=== PATIENT | female | born 1945 | race Caucasian/White ===

== ENCOUNTER 2016-10-15 06:57 | Emergency (ER) | payer MEDICARE, OTHER ==
[~2016-10-15] VITALS: Ht 160 cm; Wt 78.2 kg
[2016-10-15 07:27] VITALS: BP 170/87; PULSE 98; RESP 16; TEMP 99.1; O2SAT 99
[2016-10-15] MEDS ORDERED: SODIUM CHLOR 0.9% 1000 ML INJ 1,000 ML IV SCH (07:54)
[2016-10-15] MEDS ORDERED: ONDANSETRON HCL 4 MG/2 ML VIAL IVP ONE (08:00)
--- NOTE | 2016-10-15 08:02 | PD ---
HPI Chief Complaint: GI Complaint Time Seen by Provider: 07:44 Travel History International Travel<30 days: No Contact w/Intl Traveler<30days: No Traveled to known affect area: No History of Present Illness HPI 71-year-old female complains of headache, sore throat, coughing congestion, nausea vomiting diarrhea. Patient started having sore throat coughing congestion 4 days ago. Patient states the cough of persistent nonproductive. Patient denies any chest pain or shortness of breath. Patient started having nausea vomiting diarrhea since last night. Patient denies any chest pain. Patient denies abdominal pain. Patient complains of body ache. Patient denies any blood or mucus in the vomitus or the stool. PFSH Past Medical History Medical History: Denies Significant Hx Tetanus Vaccination: > 5 Years Influenza Vaccination: No ?: Not Past Surgical History Hysterectomy: Yes Social History Alcohol Use: No Tobacco Use: No Substance Use: No Allergies-Medications (Allergen,Severity, Reaction): Coded Allergies: No Known Allergies (Unverified , 10/15/16) Reported Meds & Prescriptions Reported Meds & Active Scripts Active No Active Prescriptions or Reported Medications Review of Systems General / Constitutional: No: Fever Eyes: No: Visual changes HENT: Positive: Headaches Cardiovascular: No: Chest Pain or Discomfort Respiratory: Positive: Cough, No: Shortness of Breath Gastrointestinal: Positive: Nausea, Vomiting, Diarrhea, No: Abdominal Pain Genitourinary: No: Dysuria Musculoskeletal: No: Pain Skin: No Rash Neurologic: No: Weakness Psychiatric: No: Depression Endocrine: No: Polydipsia Hematologic/Lymphatic: No: Easy Bruising Physical Exam Narrative GENERAL: Well-nourished, well-developed patient. SKIN: Warm and dry. HEAD: Normocephalic. EYES: No scleral icterus. No injection or drainage. Throat: Mild erythematous. NECK: Supple, trachea midline. No JVD or lymphadenopathy. CARDIOVASCULAR: Regular rate and rhythm without murmurs, gallops, or rubs. RESPIRATORY: Breath sounds equal bilaterally. No accessory muscle use. GASTROINTESTINAL: Abdomen soft, non-tender, nondistended. MUSCULOSKELETAL: No cyanosis, or edema. BACK: Nontender without obvious deformity. No CVA tenderness. Neurologic exam normal. Data Data Last Documented VS Vital Signs Date Time Temp Pulse Resp B/P Pulse Ox O2 Delivery O2 Flow Rate FiO2 10/15/16 08:40 98 Room Air 10/15/16 07:27 99.1 98 16 170/87 Orders Complete Blood Count With Diff (10/15/16 07:54) Comprehensive Metabolic Panel (10/15/16 07:54) Urinalysis - C+S If Indicated (10/15/16 07:54) Iv Access Insert/Monitor (10/15/16 07:54) Ecg Monitoring (10/15/16 07:54) Oximetry (10/15/16 07:54) Ondansetron Inj (Zofran Inj) (10/15/16 08:00) Sodium Chlor 0.9% 1000 Ml Inj (Ns 1000 M (10/15/16 07:54) Chest, Single Ap (10/15/16 07:54) Influenzae A/B Antigen (10/15/16 07:54) Labs Laboratory Tests Test 10/15/16 08:14 White Blood Count 5.2 TH/MM3 Red Blood Count 3.99 MIL/MM3 Hemoglobin 11.9 GM/DL Hematocrit 35.3 % Mean Corpuscular Volume 88.3 FL Mean Corpuscular Hemoglobin 29.7 PG Mean Corpuscular Hemoglobin 33.6 % Concent Red Cell Distribution Width 12.9 % Platelet Count 213 TH/MM3 Mean Platelet Volume 7.5 FL Neutrophils (%) (Auto) 81.4 % Lymphocytes (%) (Auto) 7.0 % Monocytes (%) (Auto) 11.0 % Eosinophils (%) (Auto) 0.0 % Basophils (%) (Auto) 0.6 % Neutrophils # (Auto) 4.2 TH/MM3 Lymphocytes # (Auto) 0.4 TH/MM3 Monocytes # (Auto) 0.6 TH/MM3 Eosinophils # (Auto) 0.0 TH/MM3 Basophils # (Auto) 0.0 TH/MM3 CBC Comment DIFF FINAL Differential Comment Sodium Level 131 MEQ/L Potassium Level 3.8 MEQ/L Chloride Level 94 MEQ/L Carbon Dioxide Level 27.7 MEQ/L Anion Gap 9 MEQ/L Blood Urea Nitrogen 12 MG/DL Creatinine 0.71 MG/DL Estimat Glomerular Filtration 82 ML/MIN Rate Random Glucose 124 MG/DL Calcium Level 8.3 MG/DL Total Bilirubin 0.4 MG/DL Aspartate Amino Transf 26 U/L (AST/SGOT) Alanine Aminotransferase 20 U/L (ALT/SGPT) Alkaline Phosphatase 51 U/L Total Protein 6.7 GM/DL Albumin 3.3 GM/DL MDM Medical Decision Making Medical Screen Exam Complete: Yes Emergency Medical Condition: Yes Interpretation(s) Last Impressions Chest X-Ray 10/15/16 0754 Signed Impressions: Service Date/Time: Saturday, October 15, 2016 08:34 - CONCLUSION: Slight interstitial prominence otherwise clear lungs. PA and lateral view of the chest recommended. Michael Fairchild MD 9:15 AM. Patient's positive for influenza A. CBC WBC 5.2. 81 neutrophil. Sodium 131. Differential Diagnosis Differential diagnosis including viral syndrome, angina, bronchitis, pneumonia, gastroenteritis, electrolyte imbalance, dehydration. Narrative Course 71-year-old female with headache, coughing congestion, nausea vomiting diarrhea. Normal saline solution 1 L IV bolus. Zofran 4 mg IV. Toradol 30 mg IV. Diagnosis Primary Impression: Flu Additional Impressions: Bronchitis Hyponatremia Patient Instructions: General Instructions Additional Instructions: Take medications as directed. Tylenol ibuprofen for fever aching pain. Follow- up with personal physician. Return if worse. Med/Other Pt SpecificInfo: Prescription(s) given Scripts Ondansetron Odt (Zofran Odt)4 Mg Tab4 Mg SL Q6HR PRN (Nausea/Vomiting) #10 TAB Ref 0 Prov:Cory Solorzano MD 10/15/16 [Phenergan W Codein] No Conflict Check10 Ml PO Q6HR #120 Prov:Cory Solorzano MD 10/15/16 Azithromycin (Zithromax Z-Lan)250 Mg [id number] Mg PO DIRECTED #1 DSPK 500 MG (2 tabs) day 1, then 1 tab days 2-5. Prov:Cory Solorzano MD 10/15/16 Disposition: 01 DISCHARGE HOME Condition: Stable Cory Solorzano MD Oct 15, 2016 08:02
[2016-10-15 08:26] LABS: AUTOMATED NEUTROPHIL # 4.2 TH/MM3 (1.8-7.7); BASOPHIL % 0.6 % (0.0-2.0); HEMATOCRIT 35.3 % (35.0-46.0); HEMO FLAGS DIFF FINAL; LYMPHOCYTE # 0.4 TH/MM3 (1.0-4.8); MEAN CELL VOLUME 88.3 FL (80.0-100.0); MEAN CORPUSCULAR HEMOGLOBIN 29.7 PG (27.0-34.0); MEAN CORPUSCULAR HGB CONC 33.6 % (32.0-36.0); NEUT % 81.4 % (16.0-70.0); PLATELET COUNT 213 TH/MM3 (150-450); RED BLOOD COUNT 3.99 MIL/MM3 (4.00-5.30); RED CELL DISTRIBUTION WIDTH 12.9 % (11.6-17.2); WHITE BLOOD COUNT 5.2 TH/MM3 (4.0-11.0)
[2016-10-15 08:33] LABS: CHLORIDE 94 MEQ/L (98-107); POTASSIUM 3.8 MEQ/L (3.5-5.1); SODIUM (NA) 131 MEQ/L (136-145)
[2016-10-15 08:37] LABS: ANION GAP 9 MEQ/L (5-15); BICARBONATE 27.7 MEQ/L (21.0-32.0); BLOOD UREA NITROGEN 12 MG/DL (7-18)
[2016-10-15 08:40] VITALS: O2SAT 98
[2016-10-15 08:40] LABS: ALT (GPT) 20 U/L (10-53); AST (GOT) 26 U/L (15-37); GLOMERULAR FILTRATION RATE 82 ML/MIN (>89)
--- NOTE | 2016-10-15 08:41 | RADHPO ---
EXAM DATE/TIME: 10/15/2016 08:34 [facility] COMPARISON: No previous studies available for comparison. INDICATIONS : Short of breath, cough, fever MEDICAL HISTORY : None. SURGICAL HISTORY : None. ENCOUNTER: Initial ACUITY: 2 days PAIN SCORE: 0/10 LOCATION: Bilateral chest FINDINGS: A single view of the chest demonstrates slight interstitial prominence otherwise clear lungs. The ca rdiomediastinal contours are unremarkable. Osseous structures are intact. CONCLUSION: Slight interstitial prominence otherwise clear lungs. PA and lateral view of the chest recommended. Michael Fairchild MD on October 15, 2016 at 8:39 Board Certified Radiologist. This report was verified electronically.
[2016-10-15 08:42] LABS: TOTAL BILIRUBIN ADULT 0.4 MG/DL (0.2-1.0)
[2016-10-15 08:43] LABS: ALKALINE PHOSPHATASE 51 U/L (45-117)
[2016-10-15] MEDS ORDERED: PHENERGAN W CODEIN PO (09:25)
[2016-10-15] MEDS ORDERED: ZOFR4TAB3 SL (09:25)
[2016-10-15] MEDS ORDERED: ZITHTAB PO (09:25)
[2016-10-15] MEDS ORDERED: KETOROLAC TROMETHAMINE 30 MG/ML (IVP) VIAL IV PUSH ONE (09:30)
[2016-10-15 10:04] VITALS: BP 123/57; PULSE 75; RESP 18; O2SAT 93
== END 2016-10-15 10:10 | disposition home or self-care (01) ==
LOC: PHED 06:57
DX: J11.1 Influenza due to unidentified influenza virus with other respiratory manifestations (principal); J40 Bronchitis, not specified as acute or chronic; E87.1 Hypo-osmolality and hyponatremia; R51 Headache; R11.2 Nausea with vomiting, unspecified; R19.7 Diarrhea, unspecified; M79.1 Myalgia
CPT/HCPCS: 71010; 80053; 85025; 87804; 96361; 96374; 96375; 99283; J1885; J2405; J7030